=== PATIENT | female | born 1995 | race Caucasian/White ===

== ENCOUNTER 2018-02-12 12:35 | Emergency (ER) | payer OTHER, MEDICAID, SELFPAY ==
--- NOTE | 2018-02-12 12:38 | ED_ITS ---
HPI - Extremity Injury (Lower) <MIRANDA Acosta - Last Filed: 02/12/18 22:06> General Chief Complaint: Extremity Injury, Lower Stated Complaint: thinks tore something in knee Time Seen by Provider: 02/12/18 12:38 History of Present Illness HPI Narrative: Healthy 22-year-old female currently approximately 9 weeks here for pain into her right knee. She states that she was jumping up and down yesterday when she felt pain to her right knee she reports increased pain with bending of the right knee and ambulating. She states she is able to ambulate and did ambulate into the emergency room. She denies any other injuries. No abdominal injury. No vaginal discharge or bleeding. No other concerns or complaints. She denies any direct trauma to the knee. MD complaint: knee injury Onset (ago): day(s) Related Data Home Medications Medication Instructions Recorded Confirmed etonogestrel-ethinyl estradiol 02/12/18 [NuvaRing] Allergies Allergy/AdvReac Type Severity Reaction Status Date / Time No Known Drug Allergies Allergy Verified 02/12/18 12:41 Review of Systems <MIRANDA Acosta - Last Filed: 02/12/18 22:06> Constitutional Denies chills, Denies fever(s), Denies lethargy and Denies weakness Eyes Denies change in vision, Denies eye discharge, Denies irritation and Denies loss of vision ENT Ears, Nose, Mouth, and Throat: Denies change in voice, Denies neck pain and Denies sore throat Cardiovascular Denies chest pain, Denies irregular heart rhythm, Denies lightheadedness, Denies palpitations, Denies dyspnea, Denies dyspnea on exertion and Denies orthopnea Respiratory Denies cough, Denies dyspnea, Denies dyspnea on exertion and Denies wheezing Gastrointestinal Gastrointestinal: Denies abdominal pain, Denies change in bowel habits, Denies diarrhea, Denies nausea and Denies vomiting Genitourinary Denies hematuria, Denies flank pain, Denies urinary incontinence and Denies urinary urgency Musculoskeletal Denies neck pain Comments: Right knee pain Integumentary/Breasts Denies pruritus, Denies erythema, Denies rash and Denies wounds Neurologic Denies confusion, Denies loss of vision and Denies weakness Psychiatric Denies anxiety, Denies confusion, Denies depression, Denies homicidal ideation and Denies suicidal ideation Endocrine Denies palpitations Allergic/Immunologic Denies wheezing Exam <MIRANDA Acosta - Last Filed: 02/12/18 22:06> Initial Vital Signs Initial Vital Signs: Vital Signs Temperature 97.4 F L 02/12/18 12:41 Pulse Rate 97 H 02/12/18 12:41 Respiratory Rate 16 02/12/18 12:41 Blood Pressure 106/54 L 02/12/18 12:41 Pulse Oximetry 97 02/12/18 12:41 Const General: cooperative and well developed Nutritional Appearance: well nourished Orientation: alert, awake, oriented x3 and not confused HENMN Mouth: oral mucosae normal and moist mucous membranes Eyes Conjunctivae: conjunctivae normal Sclera: sclerae normal Pupils: PERRL EOM: EOM intact bilaterally Chest Chest: normal inspection of the chest Resp Effort & Inspection: normal respiratory effort, able to speak in complete sentences, no respiratory distress and no use of accessory muscles Auscultation: clear to auscultation bilaterally, no rales, no rhonchi and no wheezes Cardio Rate: regular rate Rhythm: regular rhythm Heart Sounds: no click, no gallops, no murmurs and no rubs Pulses: normal peripheral pulses Skin General: no rashes or lesions noted, No jaundice and No petechiae Extrem Other: Slight swelling to the right knee. No ecchymosis. No erythema. No deformities. Distal sensation is intact. Distal pulses are intact. Distal range of motion is intact. Range of motion of the right knee is intact although decreased ability to flexion past 60? due to discomfort. Negative anterior and posterior drawer sign. Negative varus and valgus stress test <Vangie Westbrook DO - Last Filed: 02/13/18 07:14> Initial Vital Signs Initial Vital Signs: Vital Signs Temperature 97.4 F L 02/12/18 12:41 Pulse Rate 97 H 02/12/18 12:41 Respiratory Rate 16 02/12/18 12:41 Blood Pressure 106/54 L 02/12/18 12:41 Pulse Oximetry 97 02/12/18 12:41 Course <MIRANDA Acosta - Last Filed: 02/12/18 22:06> Orders Ordered: Discontinued Medications Acetaminophen (Tylenol) 650 mg PO NOW ONE Stop: 02/12/18 12:50 Last Admin: 02/12/18 12:53 Dose: 650 mg Vital Signs - 8 hr 02/12/18 12:41 Temperature 97.4 F L Pulse Rate 97 H Respiratory Rate 16 Blood Pressure 106/54 L Pulse Oximetry 97 <Vangie Westbrook DO - Last Filed: 02/13/18 07:14> Orders Ordered: Discontinued Medications Acetaminophen (Tylenol) 650 mg PO NOW ONE Stop: 02/12/18 12:50 Last Admin: 02/12/18 12:53 Dose: 650 mg Vital Signs - 8 hr 02/12/18 12:41 Temperature 97.4 F L Pulse Rate 97 H Respiratory Rate 16 Blood Pressure 106/54 L Pulse Oximetry 97 MDM - Extremity Injury (Lower) <MIRANDA Acosta - Last Filed: 02/12/18 22:06> Imaging Data R knee: Radiologist's impression: Patient: Joycelyn Poe MR#: [id number] : 1995 Acct:[id number] Age/Sex: 22 / F Date of Service: 02/12/18 Loc: ED Accession Number: [id number] Procedure: XR knee RT 3V Ordering Provider: Mazin Lowry PROCEDURE: XR KNEE RT 3V INDICATIONS: Pain to right knee after jumping yesterday TECHNIQUE: 3 views of the knee were acquired. COMPARISON: None. FINDINGS: Bones: No fractures or dislocations. No suspicious bony lesions. Soft tissues: No joint effusion. No suspicious soft tissue calcifications. IMPRESSION: No trauma found. Dictated by: Mahamed Schwartz M.D. on 02/12/2018 at 13:21 Approved by: Mahamed Schwartz M.D. on 02/12/2018 at 13:24 [facility] Narrative Medical decision making narrative: X-ray of the right knee was obtained was negative for any acute findings. Signs and symptoms presents as sprain of the right knee. She is placed in a knee immobilizer for comfort and support along with crutches for nonweightbearing. If continued pain recommend MRI for further evaluation follow up with primary care provider later this week for re- evaluation. Ice and elevation help with any swelling. [id number] Tylenol as needed for any discomfort. For any worsening symptoms return to the emergency room. Discharge Plan Departure Patient Disposition: Home, Self-Care Clinical Impression: Right knee sprain Discharge Date/Time: 02/12/18 14:02 Interventions: ED Discharge Assessment Last Done: 02/12/18 14:01 Instructions: DI for Knee Pain Activity Restrictions/Additional Instructions: X-ray of the right knee was obtained was negative for any acute findings. Signs and symptoms presents as sprain of the right knee. You have been is placed in a knee immobilizer for comfort and support along with crutches for nonweightbearing use as directed. If continued pain recommend MRI for further evaluation follow up with primary care provider later this week for re- evaluation. Ice and elevation help with any swelling. [id number] Tylenol as needed for any discomfort. For any worsening symptoms return to the emergency room. Prescriptions: No Action etonogestrel-ethinyl estradiol [NuvaRing] 0.12-0.015 mg/24 hr ring RF: 0 Referrals: Katerina Vaughan [Primary Care Provider] - <Vangie Westbrook DO - Last Filed: 02/13/18 07:14> Cosign ED Attending Mary Attestation: I was immediately available in the department for consultation. Documentation has been reviewed. I agree with assessment and plan.
[2018-02-12 12:41] VITALS: BP 106/54; PULSE 97; RESP 16; TEMP 36.3; O2SAT 97; BMI 32.3
--- NOTE | 2018-02-12 12:49 | DI.RAD.S_ITS ---
PROCEDURE: XR KNEE RT 3V INDICATIONS: Pain to right knee after jumping yesterday TECHNIQUE: 3 views of the knee were acquired. COMPARISON: None. FINDINGS: Bones: No fractures or dislocations. No suspicious bony lesions. Soft tissues: No joint effusion. No suspicious soft tissue calcifications. IMPRESSION: No trauma found. Dictated by: Mahamed Schwartz M.D. on 02/12/2018 at 13:21 Approved by: Mahamed Schwartz M.D. on 02/12/2018 at 13:24
[2018-02-12] MEDS: ACETAMINOPHEN 325 MG TABLET 650 MG PO (12:53)
[2018-02-12 13:56] VITALS: BP 114/67; PULSE 87; RESP 16; TEMP 36.7; O2SAT 99
== END 2018-02-12 14:02 | disposition home or self-care (01) ==
PROVIDERS: Emergency Provider Nurse Practitioner Family; PCP Nurse Practitioner
DX: S83.91XA Sprain of unspecified site of right knee, initial encounter (principal); W19.XXXA Unspecified fall, initial encounter
CPT/HCPCS: 73562; 99283

== ENCOUNTER 2018-03-17 13:02 | Emergency (ER) | payer OTHER, MEDICAID, SELFPAY ==
[2018-03-17 13:08] VITALS: BP 138/112; PULSE 118; RESP 18; TEMP 36.9; O2SAT 97; BMI 32.3
[2018-03-17] MEDS: TET,DIPH,PERTUSS(ACELL),VAC/PF 0.5 ML SYRINGE IM (13:10)
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
[2018-03-17 15:14] VITALS: BP 112/64; PULSE 102; RESP 14; O2SAT 100
== END 2018-03-17 15:35 | disposition home or self-care (01) ==
PROVIDERS: Emergency Provider Internal Medicine; PCP Nurse Practitioner
DX: S21.212A Laceration without foreign body of left back wall of thorax without penetration into thoracic cavity, initial encounter (principal); X99.8XXA Assault by other sharp object, initial encounter; Z3A.14 14 weeks gestation of pregnancy; O26.899 Other specified pregnancy related conditions, unspecified trimester
CPT/HCPCS: 12005; 12035; 90471; 99283; 90715

== ENCOUNTER 2018-04-01 15:24 | Inpatient (IN) | payer OTHER, MEDICAID, SELFPAY ==
[2018-04-01] VITALS (7 sets, daily range): BP systolic 101–117; BP diastolic 53–64; PULSE 98–133; RESP 14–16; TEMP 36.7–38.6; O2SAT 98–100; BMI 31.8
[2018-04-01] MEDS: ACETAMINOPHEN 325 MG TABLET 650 MG PO ×2 (16:29→22:08)
[2018-04-01 16:32] LABS: Bacteria Urine Many (>30); Culture Indicated Urine Specimen Cultured; RBC Urine 1-5/HPF (0-5/HPF); WBC Urine 30-100/HPF (0-5/HPF)
--- NOTE | 2018-04-01 16:42 | ED.ABDPAIN ---
HPI - Abdominal Pain General Chief Complaint: Abdominal Pain Stated Complaint: ABD PAIN Time Seen by Provider: 04/01/18 16:06 Source: patient Mode of arrival: ambulatory Limitations: no limitations History of Present Illness HPI narrative: Patient is a 22-year-old at 16 weeks EGA otherwise healthy here for evaluation of generalized abdominal pain, left flank pain, fevers and nausea and vomiting. Patient denies any abdominal cramping or vaginal bleeding or loss of fluid. Does not have any dysuria. No change in bowel symptoms. She states that she generally does not feel very well. States that earlier in this she was diagnosed with a urinary tract infection and did not take any antibiotics but otherwise has had an uncomplicated up to this point. Related Data Home Medications Medication Instructions Recorded Confirmed PNV cmb#95-ferrous fumarate-FA 1 tab PO DAILY 03/17/18 04/01/18 [] sertraline [Zoloft] 50 mg PO BEDTIME 04/01/18 04/01/18 Allergies Allergy/AdvReac Type Severity Reaction Status Date / Time No Known Drug Allergies Allergy Verified 04/01/18 16:02 Review of Systems Constitutional Reports fatigue, Reports fever(s), Denies headache(s) and Reports malaise ENT Ears, Nose, Mouth, and Throat: Denies headache(s) Cardiovascular Denies chest pain, Denies diaphoresis and Denies dyspnea Respiratory Denies cough and Denies dyspnea Gastrointestinal Gastrointestinal: Denies abdominal pain, Denies change in stool character, Denies constipation, Denies cramping, Reports nausea and Reports vomiting Genitourinary Denies dysuria, Denies pelvic pain, Reports flank pain (Left), Denies urinary incontinence and Denies urinary hesitancy Comments: No uterine cramping, no vaginal bleeding, no loss of fluid Musculoskeletal Denies myalgias and Denies arthralgias Integumentary/Breasts Denies lesions and Denies rash Neurologic Denies headache(s) Endocrine Reports fatigue Hematologic/Lymphatic Denies easy bleeding and Denies easy bruising [facility] Medical History Healthy female (Chronic) Surgical History H/O lateral meniscus repair of left knee (Resolved) Social History Smoking Status: Former smoker alcohol intake: never substance use type: does not use Exam Initial Vital Signs Initial Vital Signs: Vital Signs Temperature 101.4 F H 04/01/18 15:54 Pulse Rate 133 H 04/01/18 15:54 Respiratory Rate 16 04/01/18 15:54 Blood Pressure 101/53 L 04/01/18 15:54 Pulse Oximetry 99 04/01/18 15:54 Const General: cooperative, comfortable, well developed, well groomed and No acute distress Orientation: alert, awake and oriented x3 HENMT Head: normal to inspection and normocephalic Resp Effort & Inspection: normal respiratory effort Auscultation: clear to auscultation bilaterally Cardio Rate: tachycardic Rhythm: regular rhythm Heart Sounds: no murmurs Pulses: radial pulses not present GI Inspection: non-distended Palpation: soft and No firm Back/Spine/Pelvis Back: CVA tenderness left Skin Lesions: no lesions Rashes: no rashes Neuro General: alert, awake and oriented x3 Cognition: normal cognition Speech: speech normal Motor: muscle tone normal throughout Extrem General: normal to inspection, capillary refill normal and No edema Psych Appearance: grossly normal and well kempt Course Orders Ordered: ED Orders 04/01/18 16:00 Urine Culture Stat Urine Microscopic Stat 04/01/18 16:40 Basic Metabolic Panel Stat Complete Blood Count AUTO DIFF Stat Lactate (Lactic Acid) Stat 04/01/18 16:43 US OB limited Stat 04/01/18 16:59 Education, smoking cessation ONGOING 04/01/18 18:06 Blood Culture Stat Vit/Calcium/Iron/Folic Ac (Prenatabs Rx) 1 tab PO DAILY CHANTAL Discontinued Medications Acetaminophen (Tylenol) 650 mg PO NOW ONE Stop: 04/01/18 16:07 Last Admin: 04/01/18 16:29 Dose: 650 mg Sodium Chloride (Normal Saline 0.9%) 1,000 mls @ 1,000 mls/hr IV BOLUS ONE Stop: 04/01/18 17:05 Last Infusion: 04/01/18 18:28 Dose: 0 mls/hr Infusion: 04/01/18 17:45 Dose: 1,000 mls/hr Admin: 04/01/18 16:50 Dose: 1,000 mls/hr Ceftriaxone Sodium/Dextrose (Rocephin) 1 gm in 50 mls @ 100 mls/hr IV NOW ONE Stop: 04/01/18 17:14 Last Infusion: 04/01/18 17:47 Dose: 0 mls/hr Admin: 04/01/18 16:59 Dose: 100 mls/hr Vital Signs - 8 hr 04/01/18 15:54 04/01/18 16:29 04/01/18 17:27 Temperature 101.4 F H 101.2 F H Pulse Rate 133 H 98 H Respiratory Rate 16 14 Blood Pressure 101/53 L Blood Pressure [Left Arm] 111/62 Pulse Oximetry 99 100 04/01/18 17:44 Temperature 100.1 F H Pulse Rate Respiratory Rate Blood Pressure Blood Pressure [Left Arm] Pulse Oximetry MDM - Abdominal Pain Lab Data Attestation: I reviewed the patient's lab results. Result diagrams: 04/01/18 16:40 04/01/18 16:40 Lab Results 04/01/18 04/01/18 04/01/18 Range/Units 16:00 16:40 16:40 WBC 14.3 H (4.5-11.0) X10^3/uL RBC 4.01 (4.0-5.2) X10^6/uL Hgb 12.5 (12.0-16.0) g/dL Hct 36.3 (36-46) % MCV 90.6 (80-100) fL MCH 31.3 (26-34) PG MCHC 34.5 (30-36) % RDW 12.4 (11.6-14.8) % Plt Count 161 (150-400) X10^3/uL Neut % (Auto) 84.6 H (50-75) % Lymph % (Auto) 8.1 L (25-40) % [place] % (Auto) 7.1 (3-14) % Eos % (Auto) 0.1 L (2-4) % Baso % (Auto) 0.1 (0-2) % Neut # (Auto) 74788 H (0074-0608) /uL Sodium 134 L (137-145) mmol/L Potassium 3.8 (3.4-5.1) mmol/L Chloride 97 L (98-107) mmol/L Carbon Dioxide 25 (22-32) mmol/L BUN 5 L (7-17) mg/dL Creatinine 0.60 (0.52-1.04) mg/dL Estimated GFR > 60.0 (>60) mL/min BUN/Creatinine Ratio 8.3 (6-22) Glucose 104 H (70-100) mg/dL Lactate (0.7-2.1) mmol/L Calcium 9.4 (8.4-10.2) mg/dL Urine RBC 1-5/hpf (0-5/HPF) Urine WBC 30-100/hpf H (0-5/HPF) Urine Bacteria Many (>30) H (None) Ur Culture Indicated? Specimen cultured Micro UA Comment Not Reportable 04/01/18 Range/Units 16:40 WBC (4.5-11.0) X10^3/uL RBC (4.0-5.2) X10^6/uL Hgb (12.0-16.0) g/dL Hct (36-46) % MCV (80-100) fL MCH (26-34) PG MCHC (30-36) % RDW (11.6-14.8) % Plt Count (150-400) X10^3/uL Neut % (Auto) (50-75) % Lymph % (Auto) (25-40) % [place] % (Auto) (3-14) % Eos % (Auto) (2-4) % Baso % (Auto) (0-2) % Neut # (Auto) (6382-5254) /uL Sodium (137-145) mmol/L Potassium (3.4-5.1) mmol/L Chloride (98-107) mmol/L Carbon Dioxide (22-32) mmol/L BUN (7-17) mg/dL Creatinine (0.52-1.04) mg/dL Estimated GFR (>60) mL/min BUN/Creatinine Ratio (6-22) Glucose (70-100) mg/dL Lactate 0.9 (0.7-2.1) mmol/L Calcium (8.4-10.2) mg/dL Urine RBC (0-5/HPF) Urine WBC (0-5/HPF) Urine Bacteria (None) Ur Culture Indicated? Micro UA Comment Point of care testing: Urine Dip Bedside Urine Glucose Negative Bedside Urine Bilirubin - Negative Bedside Urine Ketone +/- 5 Urine Specific [place] 1.015 Bedside Urine Occult Blood - Negative Bedside Urine pH 6.0 Bedside Urine Protein +/- 15 Bedside Urine Urobilinogen - Negative Bedside Urine Nitrite + Positive Bedside Urine Leukocytes + 70 Esterase Imaging Data US - abdomen: Radiologist's impression: [address] [address] Ultrasound Report Signed Patient: Joycelyn Poe LMR#: [id number] : 1995Acct:[id number] Age/Sex: te of Service: 04/01/18 Loc: AE127-6 Accession Number: [id number] Procedure: US OB limited Ordering Provider: Jomar Benoit D.O. PROCEDURE: US OB LIMITED INDICATIONS: abd pain with pyelo OUTSIDE/PRIOR DATING DATA: Last menstrual period (LMP): 12/09/17. LMP-based estimated date of delivery (IVELISSE): 09/15/18. First dating scan (date and location): Not available. Estimated date of delivery (IVELISSE) from first dating scan: Not available. TECHNIQUE: Real-time scanning was performed of the fetus, with image documentation and biometric measurements. Endovaginal scanning: None COMPARISON: None. FINDINGS: General: A single living intrauterine gestation is present. Presentation: Vertex Placenta: Placental position is anterior, without previa. Amniotic fluid index: 12.7 cm, normal range is 5-24 cm. heart rate: 153 beats per minute. Maternal cervical canal: 3.2 cm long. Normal lower limit is 2.5 cm. biometrics: Biparietal diameter: 3.4 cm, and 16 weeks 4 days Head circumference: 12.7 cm, 16 weeks 3 days Abdominal circumference: 9.8 cm, 15 weeks 6 days Femur length: 1.9 cm, 15 weeks 5 days Estimated gestational age from initial scan: not applicable. Composite gestational age from present scan: 16 week one day Estimated weight and percentile: 137 g, 24% Measurement variability for biometric dating: +/- 7 days from 14 weeks to 15 weeks 6 days gestation, +/- 10 days from 16 weeks to 21 weeks 6 days gestation, +/- 2 weeks from 22 weeks to 27 weeks 6 days gestation, +/- 3 weeks for 28 weeks gestation or later. weight reference: 4500 g or EFW >90/95% is considered macrosomia or large for gestational age. EFW <10% is small for gestational age. EFW 5% or less is considered intra-uterine growth restriction. Other: Not applicable. IMPRESSION: Single live intrauterine with fetus in vertex presentation. heart rate is 153 beats per minute. Estimated gestational age based on current study is 16 week one day. No gross obstetric abnormalities are seen. Dictated by: Vidal Campoverde M.D. on 04/01/2018 at 17:47 Approved by: Vidal Campoverde M.D. on 04/01/2018 at 17:50 [facility] Narrative Medical decision making narrative: Otherwise healthy 22-year-old female febrile, elevated white blood cell count, tachycardic and urinalysis concerning for a UTI. Patient was also vomiting and just does not feel well for the past couple days. I feel that her symptoms are consistent with pyelo. She was given Rocephin here in the ER. Was also given fluids and Tylenol here in the ER. I feel that even though the patient has not had a trial of oral antibiotics at home her clinical presentation the fact she has been vomiting for the past couple days would make this excess of oral antibiotics unlikely to be successful. Discussed the case with Dr. Nunez with Internal Medicine who accepts the patient for admission. I also discussed with Dr. Hicks with OB who states she will come and consult on the patient tomorrow. I discussed the admission with the patient. She expressed understanding and agreement with plan. Discharge Plan Departure Patient Disposition: Admitted as Observation Clinical Impression: Pyelonephritis, Discharge Date/Time: 04/01/18 17:28 Interventions: ED Discharge Assessment Last Done: 04/01/18 17:28 Admit Date/Time: 04/01/18 16:53 Admit Provider: Bert Jamil
[2018-04-01] MEDS: SODIUM CHLORIDE 0.9% 1,000 ML 1000 ML IV (16:50)
[2018-04-01 16:56] LABS: Add Manual Diff / Slide Review NO; Basophils Percent Auto 0.1 % (0-2); Eosinophils Percent Auto 0.1 % (2-4); Hematocrit 36.3 % (36-46); Hemoglobin 12.5 g/dL (12.0-16.0); Lymphocytes Percent Auto 8.1 % (25-40); Mean Corpuscular HGB Conc 34.5 % (30-36); Mean Corpuscular Hemoglobin 31.3 PG (26-34); Mean Corpuscular Volume 90.6 fL (80-100); Monocytes Percent Auto 7.1 % (3-14); Neutrophils Absolute Auto 12100 /uL (3000-5900); Neutrophils Percent Auto 84.6 % (50-75); Platelet Count 161 X10^3/uL (150-400); Red Blood Cell Count 4.01 X10^6/uL (4.0-5.2); Red Cell Distribution Width 12.4 % (11.6-14.8); White Blood Cell Count 14.3 X10^3/uL (4.5-11.0)
[2018-04-01] MEDS: CEFTRIAXONE 1 GM/50 ML FROZ.PIGGY IV (16:59)
[2018-04-01 17:05] LABS: Lactate (Lactic Acid) 0.9 mmol/L (0.7-2.1)
[2018-04-01 17:06] LABS: BUN Creatinine Ratio 8.3 (6-22); Blood Urea Nitrogen 5 mg/dL (7-17); Calcium 9.4 mg/dL (8.4-10.2); Carbon Dioxide 25 mmol/L (22-32); Chloride 97 mmol/L (98-107); Estimated Glomerular Filt Rate > 60.0 mL/min (>60); Glucose 104 mg/dL (70-100); HEMOLYSIS < 15 (0-50); Potassium 3.8 mmol/L (3.4-5.1); Sodium 134 mmol/L (137-145)
--- NOTE | 2018-04-01 17:56 | PM.HP.1 ---
History of Present Illness Date Patient Seen: 04/01/18 Time Patient Seen: 17:58 Chief complaint: ABD PAIN Narrative: THIS VERY PLEASANT 22-YEAR-OLD FEMALE WHO IS 16 WEEKS NAUSEA VOMITING FOR THE LAST 2 DAYS ABDOMINAL DISCOMFORT WENT [facility] 2 DAYS AGO AND HAD TO WAIT FOR 3 HR BUT NOBODY SAW SO SHE CAME BACK AND SHE PRESENT TO THE ER TODAY SINCE SHE WAS CONTINUOUSLY VOMITING LAST NIGHT SHE HAS A FEVER IN THE ER INITIALLY SHE THOUGHT THE ABDOMINAL DISCOMFORT IS UNCERTAIN BOTHER BUT THEN SHE STARTED GETTING NAUSEA AND VOMITING AND THE SHE PRESENTED TO THE ER DURING THE BEGINNING OF THE SHE HAD A POSITIVE URINARY TRACT INFECTION BUT DID NOT TAKE ANY ANTIBIOTICS PRESCRIBED AT THE TIME THIS IS A 2ND THE 1ST THE CHILD IS ON SMEAR IN 3 MONTHS OR SHE HAD NO ISSUES DURING THAT TIME NO URINARY INFECTION OR DIABETES Patient History Medical History Healthy female (Chronic) Surgical History H/O lateral meniscus repair of left knee (Resolved) Family & Social History Family History: Reviewed 04/01/18 by Bert Jamil MD Tobacco & Substance use: Smoking Status Former smoker alcohol intake never alcohol intake frequency 0-2 drinks per day Substance Use Type does not use Comment: THIS IS A HISTORY OF DIABETES IN THE GRANDPARENTS NO HISTORY OF EARLY CORONARY DISEASE Meds Home Medications Medication Instructions Recorded Confirmed Type PNV cmb#95-ferrous fumarate-FA 1 tab PO DAILY 03/17/18 04/01/18 History [] Allergies Allergy/AdvReac Type Severity Reaction Status Date / Time No Known Drug Allergies Allergy Verified 04/01/18 16:02 Review of Systems Review of Systems TWELVE POINT REVIEW OF SYSTEM WAS DONE SHE DOES NOT COMPLAIN OF ANY CHEST PAIN OR DIFFICULTY BREATHING COUGH PALPITATIONS FEVER CHILLS OR RIGORS OTHER SYSTEMS ARE NEGATIVE Exam Vital Signs (past 8 hours): - 04/01/18 15:54 04/01/18 16:29 04/01/18 17:27 Temperature 101.4 F H 101.2 F H Pulse Rate 133 H 98 H Respiratory Rate 16 14 Blood Pressure 101/53 L Blood Pressure [Left Arm] 111/62 Pulse Oximetry 99 100 04/01/18 17:44 Temperature 100.1 F H Pulse Rate Respiratory Rate Blood Pressure Blood Pressure [Left Arm] Pulse Oximetry Oxygen Delivery Method Room Air Const General: cooperative, healthy appearing, comfortable and well developed Orientation: alert, awake and oriented x3 HENMT Head: normal to inspection Ears: hearing grossly normal bilaterally Nose: external nose normal Face and sinus: normal facial exam Mouth: oral mucosae normal Eyes General: appearance normal, both eyes and all related structures Eyelids: eyelids normal Conjunctivae: conjunctivae normal Sclera: sclerae normal Pupils: PERRL EOM: EOM intact bilaterally Neck Neck: normal visual inspection Thyroid: thyroid normal Resp Effort & Inspection: normal respiratory effort, able to speak in complete sentences, no respiratory distress and no use of accessory muscles Auscultation: clear to auscultation bilaterally Cardio Rate: regular rate Rhythm: regular rhythm Heart Sounds: S1 normal and S2 normal GI Palpation: soft and tender (MILD LT CV ANGLE ) Skin General: no rashes or lesions noted Neuro General: alert, awake, oriented x3 and no meningeal signs Cranial Nerves: CN's II-XI intact bilaterally Cognition: normal cognition Speech: speech normal Motor: muscle tone normal throughout Sensory Exam: no sensory deficits noted Extrem Other: NIL CALF TENDERNESS NIL EDEMA Psych Appearance: grossly normal Speech and Movement: speech and movement normal Mood: congruent mood Affect: normal affect Attitude: cooperative Thought Process: normal Thought Content: normal Judgment: judgment good Objective Labs Result Diagrams: 04/01/18 16:40 04/01/18 16:40 Labs: Laboratory Results - last 24 hr 04/01/18 04/01/18 04/01/18 16:00 16:40 16:40 WBC 14.3 H RBC 4.01 Hgb 12.5 Hct 36.3 MCV 90.6 MCH 31.3 MCHC 34.5 RDW 12.4 Plt Count 161 Neut % (Auto) 84.6 H Lymph % (Auto) 8.1 L [place] % (Auto) 7.1 Eos % (Auto) 0.1 L Baso % (Auto) 0.1 Neut # (Auto) 23115 H Sodium 134 L Potassium 3.8 Chloride 97 L Carbon Dioxide 25 BUN 5 L Creatinine 0.60 Estimated GFR > 60.0 BUN/Creatinine Ratio 8.3 Glucose 104 H Lactate Calcium 9.4 Urine RBC 1-5/hpf Urine WBC 30-100/hpf H Urine Bacteria Many (>30) H Ur Culture Indicated? Specimen cultured Micro UA Comment Not Reportable 04/01/18 16:40 WBC RBC Hgb Hct MCV MCH MCHC RDW Plt Count Neut % (Auto) Lymph % (Auto) [place] % (Auto) Eos % (Auto) Baso % (Auto) Neut # (Auto) Sodium Potassium Chloride Carbon Dioxide BUN Creatinine Estimated GFR BUN/Creatinine Ratio Glucose Lactate 0.9 Calcium Urine RBC Urine WBC Urine Bacteria Ur Culture Indicated? Micro UA Comment Assessment & Plan Plan: Assessment/Plan Narrative: 1. URINARY TRACT INFECTION AND POSSIBLE ACUTE PYELONEPHRITIS START CEFTRIAXONE IV WILL GET ULTRASOUND OF THE KIDNEYS TO MAKE SURE THERE IS NO DRAINABLE COLLECTION 2. AT [address] JACKSON HAS BEEN INFORMED OF HER ADMISSION FROM THE ER WILL SEE HER IN THE MORNING TOMORROW 3. SMOKER UNTIL BEING A DVT PROPHYLAXIS WITH SCD Time Spent With Patient Time with patient: Greater than 35 minutes
--- NOTE | 2018-04-01 18:57 | PC.NURSE ---
patient is a&ox4, 98% on ra, denies nausea, sob, or dizziness. patient states pain is 6/10 in her flank bilaterally, lower right quadrant and upper left quadrant of abd. cms is intact, pulses palpable to dorsalis pedis bilaterally, patient demonstrates adequate mobility while ambulating to br. patient voided successfully in br. lung sounds clear, heart sounds regular, bowel tones active, patient states she is not passing gas at this time. skin is intact except for 1-week old scar to left scapula, patient was cut by friend with razor; recieved stitches and scar is healing nicely. patient oriented to room, will continue to monitor. call light in reach.
[2018-04-01] MEDS: DEXTROSE 5%-NS W/KCL 20MEQ 1,000 ML 84 MEQ IV (20:01)
[2018-04-02] VITALS (12 sets, daily range): BP systolic 92–104; BP diastolic 47–62; PULSE 78–86; RESP 14–20; TEMP 36.4–36.8; O2SAT 96–100
[2018-04-02] MEDS: ACETAMINOPHEN 325 MG TABLET 650 MG PO ×5 (03:24→22:58)
--- NOTE | 2018-04-02 04:28 | PC.NURSE ---
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 Pleasant and cooperative, Pt's boyfriend Gonzalez stayed overnight, contract writer explained visitor policy for night to pt's sister who was also in room, who was agreeable to going home and come back in the AM. IVF infusing well to Right AC PIV. Pt OOB with SBA to BR with steady gait, denies light-headedness or dizziness with ambulation. At 0110, c/o RLQ & LUQ abd pain, non tender abd, no prn's at this time. At 0325, c/o RLQ & LUQ abd pain, lower back pain and anterior headache. prn Tylenol given at 0325 and gallito castellano. No nausea noted. Tylenol had good effect as upon reassessment, pt found to be sleeping. Voiding qs in BR, aware of need for I/O measurements. Pt aware of Renal U/S at 0900 per dept phone call, no restrictions noted. Pt did states eagerness for discharge as her sister's wedding is Wednesday at noon.
[2018-04-02] MEDS: DEXTROSE 5%-NS W/KCL 20MEQ 1,000 ML 84 MEQ IV ×2 (06:49→19:25)
--- NOTE | 2018-04-02 08:00 | DI.US.S_ITS ---
PROCEDURE: US RENAL COMPLETE INDICATIONS: pyelonephritis, abd pain TECHNIQUE: Real-time scanning was performed of the kidneys and bladder, with image documentation. COMPARISON: None. FINDINGS: Kidneys: Kidneys are normal in size. Right kidney measures 13.7 cm long; left kidney measures 13.9 cm long. Right renal cortical thickness is 1.6 cm; left renal cortical thickness is 1.8 cm. Renal cortical echotexture is normal. No hydronephrosis or nephrolithiasis. No suspicious solid mass lesions. Normal anatomic variant duplex right renal collecting system. Bladder: Pre-void bladder volume is essentially 0 mL. Post-void residual is 12 mL. The patient had voided just prior to the examination. Miscellaneous: No free pelvic fluid. IMPRESSION: No hydronephrosis or nephrolithiasis. No perinephric abscess is suspected. Reported pyelonephritis with left-sided flank pain. Bladder assessment is incomplete due to to the patient having voided just prior to the examination. Note: These findings are concordant with the preliminary interpretation. Dictated by: Mahamed Schwartz M.D. on 04/02/2018 at 10:04 Approved by: Mahamed Schwartz M.D. on 04/02/2018 at 10:06
[2018-04-02] MEDS: PRENATAL VIT,CALC/IRON/FOLIC 1 TABLET 1 TAB PO (08:25)
--- NOTE | 2018-04-02 11:53 | P.CONS_ITS ---
History of Present Illness Date Patient Seen: 04/02/18 Time Patient Seen: 11:53 Chief complaint: ABD PAIN Reason for consult: Obstetrical patient with pyelonephritis Requesting provider: Bert Jamil Narrative: Patient is a 22-year-old 2 para 1 at 14 weeks gestation who was admitted last evening through the emergency department for a left-sided pyelonephritis Patient receives her primary OB care in [place]. She has not had any complications so far. She has had 1 spontaneous vaginal delivery 15 months ago at 38 weeks. No complications with or delivery. [facility] Medical History History of recurrent UTIs (Acute) Healthy female (Chronic) Surgical History H/O lateral meniscus repair of left knee (Resolved) Social History household members: significant other, family and children Smoking Status: Former smoker alcohol intake: never substance use type: does not use Meds Home Medications Medication Instructions Recorded Confirmed Type PNV cmb#95-ferrous fumarate-FA 1 tab PO DAILY 03/17/18 04/01/18 History [] sertraline [Zoloft] 50 mg PO BEDTIME 04/01/18 04/01/18 History Allergies Allergy/AdvReac Type Severity Reaction Status Date / Time No Known Drug Allergies Allergy Verified 04/01/18 16:02 Review of Systems Constitutional Constitutional: Denies anorexia, Denies body ache(s), Reports chills, Denies excessive sweating, Reports fatigue, Reports fever(s), Denies headache(s), Denies lack of energy, Reports night sweats and Denies poor appetite ENT Ears, Nose, Mouth, and Throat: No headache(s) Gastrointestinal Gastrointestinal: Reports abdominal pain, Denies change in bowel habits, Denies constipation and Reports cramping Genitourinary Genitourinary: Reports urinary frequency, Denies difficulty voiding, Denies post void dribbling, Denies urinary incontinence, Denies urinary hesitancy, Reports urinary urgency and Denies genital pruritis Neurologic Neurologic: Denies headache(s) Endocrine Endocrine: Denies excessive sweating and Reports fatigue Exam Vital Signs (past 8 hours): - 04/02/18 07:00 04/02/18 07:45 Temperature 97.6 F Pulse Rate 84 Respiratory Rate 16 Blood Pressure 94/55 L Pulse Oximetry 96 100 Oxygen Delivery Method Room Air Oxygen Flow Rate 0 Const General: cooperative, healthy appearing, comfortable and well developed Nutritional Appearance: average body habitus Orientation: alert and awake [facility] Mouth: oral mucosae normal Teeth and gingiva: dentition normal Other: No anterior cervical or supraclavicular lymphadenopathy Neck Thyroid: thyroid normal Lymphatic: No lymphadenopathy Chest Chest: normal inspection of the chest and normal palpation of entire chest wall Resp Effort & Inspection: normal respiratory effort and able to speak in complete sentences Cardio Rate: regular rate Rhythm: regular rhythm Heart Sounds: S1 normal and S2 normal GI Inspection: other (Fundal height 15 cm) Palpation: soft, no hepatosplenomegaly, No guarding and No tender Auscultation: normal bowel sounds General: CVA tenderness (On the left) External Female Exam: external appearance normal Uterus Location (Fundal Height): 15 Back/Spine/Pelvis Back: back tenderness (Left side) Objective Labs Result Diagrams: 04/01/18 16:40 04/01/18 16:40 Labs: Laboratory Results - last 24 hr 04/01/18 04/01/18 04/01/18 16:00 16:40 16:40 WBC 14.3 H RBC 4.01 Hgb 12.5 Hct 36.3 MCV 90.6 MCH 31.3 MCHC 34.5 RDW 12.4 Plt Count 161 Neut % (Auto) 84.6 H Lymph % (Auto) 8.1 L [place] % (Auto) 7.1 Eos % (Auto) 0.1 L Baso % (Auto) 0.1 Neut # (Auto) 83845 H Sodium 134 L Potassium 3.8 Chloride 97 L Carbon Dioxide 25 BUN 5 L Creatinine 0.60 Estimated GFR > 60.0 BUN/Creatinine Ratio 8.3 Glucose 104 H Lactate Calcium 9.4 Urine RBC 1-5/hpf Urine WBC 30-100/hpf H Urine Bacteria Many (>30) H Ur Culture Indicated? Specimen cultured Micro UA Comment Not Reportable 04/01/18 16:40 WBC RBC Hgb Hct MCV MCH MCHC RDW Plt Count Neut % (Auto) Lymph % (Auto) [place] % (Auto) Eos % (Auto) Baso % (Auto) Neut # (Auto) Sodium Potassium Chloride Carbon Dioxide BUN Creatinine Estimated GFR BUN/Creatinine Ratio Glucose Lactate 0.9 Calcium Urine RBC Urine WBC Urine Bacteria Ur Culture Indicated? Micro UA Comment Ultrasound: 16 week gestation. heart rate 153 beats per minute. Renal ultrasound: No hydronephrosis or kidney stones. No evidence of abscess. Assessment & Plan (1) Pyelonephritis affecting in second trimester: Current visit: Yes Status: Acute (2) 14 weeks gestation of : Current visit: Yes Status: Acute Plan: Assessment/Plan Narrative: Assessment: 22-year-old 2 para 1 at 14 weeks gestation with left-sided pyelonephritis No evidence of abscess or kidney stones Plan: Continue IV antibiotics until 04/03/2018 Discharge patient to home on Macrobid 1 p.o. b.i.d. for 8 more days Macrodantin 50 mg p.o. q.day for the remainder of the Patient to follow up with her primary OB provider as scheduled
--- NOTE | 2018-04-02 12:38 | PM.PN.1 ---
Subjective Date Patient Seen: 04/02/18 Time Patient Seen: 09:39 Interval history: A 22-YEAR-OLD ADMITTED YESTERDAY AFTER ABDOMINAL DISCOMFORT LEFT FLANK PAIN NAUSEA VOMITING FOR 2 DAYS FOUND TO HAVE URINARY TRACT INFECTION CULTURES PENDING ULTRASOUND OF THE KIDNEYS WERE NEGATIVE FOR ANY PYELONEPHRITIS OR ABSCESS OF STONES OBSTETRICS CONSULTATION AND FINDINGS AND PLAN DISCUSSED WITH DR. JACKSON PATIENT IS FEELING BETTER TODAY BUT STILL SOME ABDOMINAL DISCOMFORT ON ALL Exam Vital Signs (past 8 hours): - 04/02/18 07:00 04/02/18 07:45 04/02/18 11:55 Temperature 97.6 F 98.0 F Pulse Rate 84 85 Respiratory Rate 16 16 Blood Pressure 94/55 L 99/62 Pulse Oximetry 96 100 99 Oxygen Delivery Method Room Air Oxygen Flow Rate 0 Const General: cooperative, healthy appearing, comfortable and well developed Orientation: alert, awake and oriented x3 HENMT Head: normal to inspection Ears: hearing grossly normal bilaterally Nose: external nose normal Face and sinus: normal facial exam Eyes General: appearance normal, both eyes and all related structures Eyelids: eyelids normal Conjunctivae: conjunctivae normal Sclera: sclerae normal Neck Neck: normal visual inspection Thyroid: thyroid normal Resp Effort & Inspection: normal respiratory effort, able to speak in complete sentences, respiratory effort not decreased and no respiratory distress Auscultation: clear to auscultation bilaterally Cardio Rate: regular rate Rhythm: regular rhythm Heart Sounds: S1 normal and S2 normal GI Inspection: normal to inspection Palpation: soft and no hepatosplenomegaly Other: VAGUE TENDERNESS RT LQ AND LT UQ Skin General: no rashes or lesions noted Neuro General: alert, awake and oriented x3 Cranial Nerves: CN's II-XI intact bilaterally Cognition: normal cognition Speech: speech normal Motor: muscle tone normal throughout Extrem General: normal to inspection Psych Mood: congruent mood Affect: normal affect Attitude: cooperative Thought Process: normal Thought Content: normal Judgment: judgment good Objective Labs Result Diagrams: 04/01/18 16:40 04/01/18 16:40 Labs: Laboratory Results - last 24 hr 04/01/18 04/01/18 04/01/18 16:00 16:40 16:40 WBC 14.3 H RBC 4.01 Hgb 12.5 Hct 36.3 MCV 90.6 MCH 31.3 MCHC 34.5 RDW 12.4 Plt Count 161 Neut % (Auto) 84.6 H Lymph % (Auto) 8.1 L [place] % (Auto) 7.1 Eos % (Auto) 0.1 L Baso % (Auto) 0.1 Neut # (Auto) 85526 H Sodium 134 L Potassium 3.8 Chloride 97 L Carbon Dioxide 25 BUN 5 L Creatinine 0.60 Estimated GFR > 60.0 BUN/Creatinine Ratio 8.3 Glucose 104 H Lactate Calcium 9.4 Urine RBC 1-5/hpf Urine WBC 30-100/hpf H Urine Bacteria Many (>30) H Ur Culture Indicated? Specimen cultured Micro UA Comment Not Reportable 04/01/18 16:40 WBC RBC Hgb Hct MCV MCH MCHC RDW Plt Count Neut % (Auto) Lymph % (Auto) [place] % (Auto) Eos % (Auto) Baso % (Auto) Neut # (Auto) Sodium Potassium Chloride Carbon Dioxide BUN Creatinine Estimated GFR BUN/Creatinine Ratio Glucose Lactate 0.9 Calcium Urine RBC Urine WBC Urine Bacteria Ur Culture Indicated? Micro UA Comment Assessment & Plan Plan: Assessment/Plan Narrative: 1. ACUTE PYELONEPHRITIS NO EVIDENCE OF PYONEPHROSIS STONES ON ULTRASOUND OF THE KIDNEY IN A PATIENT WITH 21 WEEKS HE IS ON IV ROCEPHIN NOW AND CONTINUE THAT AND WILL BE DISCHARGED HOME ON ORAL NITROFURANTOIN WITH SUPPRESSIVE THERAPY FOR THE REST OF THE 2. RECURRENCE UTI Time Spent With Patient Time with patient: 25 - 35 minutes
--- NOTE | 2018-04-02 13:11 | PC.NURSE ---
AM shift pt c/o nausea and LUQ/ Left flank pain (6/10) throughout shift. Administered 650mg Tylenol and pain decreased to around a 2/10. Patient vomited once (400ml), and reports feeling warm. Urine cultures came back positive for Gram Negative Bacilli. US of kidneys completed this AM. D5NS running at 84/hr with 20mEq of K. Patient is 16wk and denies n/v pre-UTI. Denies pain with voiding.
--- NOTE | 2018-04-02 14:15 | CM.DANOTE ---
Discharge Planning/Care Management DCP: assessment: CM Discharge Assessment Start: 04/02/18 14:12 Freq: Status: Active Protocol: Document 04/02/18 14:12 ITV (Rec: 04/02/18 14:15 [email or web address] [email or web address]) Discharge Planning Assessment Advance Directives? No Advance Directives on File No History Provided By Medical Record Prior Living Arrangements Apartment/Condo Household Members significant other family children Independent with ADL's Yes Is patient alert and oriented? Yes Barriers to Discharge No Discharge Plan Home Referrals Initiated None needed Additional Comment gets primary OB care in [place]. Whiteboard Updated in Patient Room with Yes name and ext. # of [place] Comment pt and her boyfriend Leigh Ann both appearing to be sleeping deeply and do not rouse while white board is updated. ([id number] ) Review Status In Process Next Review Type Continued Stay Review
--- NOTE | 2018-04-02 14:25 | CM.DANOTE ---
Discharge Planning/Care Management DCP: assessement: case received, EMR reviewed, conferred with RN caring for pt who confirmed that there had been some confusion re ? of a d/c today and that Dr. Hicks has clarified that pt would stay on for the IV antibiotics with consideration of d/c tomorrow. Attempted to meet now with pt and her sig other now. Neither roused from apparent deep sleep, white board was updated with d/c inventory control planner contact info. Pt is a 22 year old female who admitted to care of hospitalist team for s/s pyelonephritis. She is [address] Hicks was consulted. PCP: listed as Katerina Vaughan Payer: [facility]/Medicaid. Pt, per RN, was hoping to d/c this morning. so she could go to a friend's wedding at noon. She was declared not stable for same. It is anticipated she will be able to go home tomorrow. No concern are identified at this time re the d/c plan. Will check in tomorrow and be following prn for any d/c needs that may arise. CM Discharge Assessment Start: 04/02/18 14:12 Freq: Status: Active Protocol: Document 04/02/18 14:12 ITV (Rec: 04/02/18 14:15 [email or web address] [email or web address]) Discharge Planning Assessment Advance Directives? No Advance Directives on File No History Provided By Medical Record Prior Living Arrangements Apartment/Condo Household Members significant other family children Independent with ADL's Yes Is patient alert and oriented? Yes Barriers to Discharge No Discharge Plan Home Referrals Initiated None needed Additional Comment gets primary OB care in [place]. Whiteboard Updated in Patient Room with Yes name and ext. # of Industrial Pharmacist Comment pt and her boyfriend Leigh Ann both appearing to be sleeping deeply and do not rouse while white board is updated. ([id number] ) Review Status In Process Next Review Type Continued Stay Review
[2018-04-02] MEDS: CEFTRIAXONE 1 GM/50 ML FROZ.PIGGY IV (16:37)
[2018-04-02] MEDS: ONDANSETRON 4 MG/2 ML INJ IV (20:34)
--- NOTE | 2018-04-03 05:57 | PC.NURSE ---
Mechanic- Uneventful over night, VSS, afebrile. Pain reported as same 6/10 to RLQ and LUQ abd and lower back. Tylenol prn request at 2300 from evening RN, pt able to make needs known. Voiding qs, aware of need for I/O's. IVF infusing well to Right AC PIV per order. Mild nausea noted, no prn's needed throughout shift. Call light within reach.
[2018-04-03 06:02] VITALS: BP 101/58; PULSE 78; RESP 17; TEMP 37.3; O2SAT 99
[2018-04-03 07:00] VITALS: O2SAT 98
[2018-04-03] MEDS: DEXTROSE 5%-NS W/KCL 20MEQ 1,000 ML 84 MEQ IV (07:38)
[2018-04-03] MEDS: ACETAMINOPHEN 325 MG TABLET 650 MG PO ×2 (07:48→12:41)
[2018-04-03] MEDS: ONDANSETRON 4 MG/2 ML INJ IV ×2 (07:53→12:45)
--- NOTE | 2018-04-03 07:58 | PC.NURSE ---
Addendum entered by Cherise De La Cruz R.N. 04/03/18 12:49: Noon- D/c on hold for nausea/emesis this AM Original Note: Addendum entered by Cherise De La Cruz R.N. 04/03/18 10:44: Add 1020-Pt had x1 emesis 300mls. Reports nausea resolved since emesis. Requesting shower. ABD pain vauge and diffuse across ABD. BT+, soft and non tender. Discussed with Dr Nunez, if this was overall nausea and poor nutritional choices. Education provided on nutritional service and support. Original Note: AM shift Pt A/o x3, wakes reporting worsening pain to ABD, APAP given, 03/18. Mild nausea, medicated with zofran. Pt is up sipping tea before meal and would like to see if mobilization and BR aids in pain relief. VSS, afebrile. IVF infusing.
[2018-04-03 08:00] VITALS: BP 93/58; PULSE 77; RESP 17; TEMP 37.1; O2SAT 99
[2018-04-03 12:11] VITALS: BP 94/55; PULSE 72; RESP 16; TEMP 36.8; O2SAT 98
--- NOTE | 2018-04-03 12:49 | CM.DPC ---
DCP Discharge Home Per MD, pt is medically stable to d/c home today on oral medication and no identified barriers to discharge. Per RN, pt improved and independent in room and still wanting to d/c home today. Plan: Patient to d/c home via family POV today and no d/c needs at this time. BRYON Valladares
--- NOTE | 2018-04-03 14:32 | P.DS_ITS ---
History of Present Illness Chief complaint: ABD PAIN Narrative: THIS VERY PLEASANT 22-YEAR-OLD FEMALE WHO IS 16 WEEKS NAUSEA VOMITING FOR THE LAST 2 DAYS ABDOMINAL DISCOMFORT WENT TO [facility] EMERGENCY ROOM 2 DAYS AGO AND HAD TO WAIT FOR 3 HR BUT NOBODY SAW DRFrandy SO SHE CAME BACK AND SHE PRESENT TO THE ER TODAY SINCE SHE WAS CONTINUOUSLY VOMITING LAST NIGHT SHE HAS A FEVER IN THE ER INITIALLY SHE THOUGHT THE ABDOMINAL DISCOMFORT IS UNCERTAIN BOTHER BUT THEN SHE STARTED GETTING NAUSEA AND VOMITING AND THE SHE PRESENTED TO THE ER DURING THE BEGINNING OF THE SHE HAD A POSITIVE URINARY TRACT INFECTION BUT DID NOT TAKE ANY ANTIBIOTICS PRESCRIBED AT THE TIME THIS IS A 2ND THE 1ST THE CHILD IS ON SMEAR IN 3 MONTHS OR SHE HAD NO ISSUES DURING THAT TIME NO URINARY INFECTION OR DIABETES Discharge Providers Date of admission: 04/01/18 16:53 Primary care physician: Katerina Vaughan Consults: 04/01/18 19:03 Consult to Obstetrics Routine Comment: Consulting Provider: Scarlet Hicks Reason for consultation: 16 WEEK AC PYELONEPHRITIS Has provider been notified: Yes Discharge provider: Moises Jamil MD Summary Discharge Diagnosis: 1 RECURRENT URINARY TRACT INFECTION WITH E COLI 2. ACUTE PYELONEPHRITIS WITH NO EVIDENCE OF STONE OR ABSCESS 3. 14 WEEKS Hospital Course: THIS IS A 22-YEAR-OLD WITH 14 WEEKS CAME TO THE ER BECAUSE OF ABDOMINAL PAIN LEFT FLANK PAIN NAUSEA VOMITING SHE WAS DIAGNOSED WITH URINARY INFECTION AT THE BEGINNING OF THIS BUT DID NOT TAKE ANY MED TREATMENT URINALYSIS IN THE ER SHOWED ABNORMALITIES URINE CULTURE SUBSEQUENTLY GREW E COLI [place]O SENSITIVE TO ANTIBIOTICS DR. HICKS KINDLY CONSULTED FROM THE OBSTETRIC STANDPOINT PATIENT HAS REMAINED AFEBRILE HAS NOT HAD ANY ACUTE EVENT IN THE HOSPITAL SHE IS BEING DISCHARGED HOME ON [place] FOR ANOTHER 7 DAYS IN TREATMENT DOSE OF 100 MG TWICE A DAY AND AFTER THAT SHE WILL NEED TO BE ON [facility] AT 50 MG ONCE A DAY FOR THE REST OF THE PER THE RECOMMENDATION OF HER MANAGER CODE HERE DR. HICKS THE PATIENT NORMALLY FOLLOWS UP AT [facility] AND SHE WILL FOLLOW UP WITH HER FAMILY PHYSICIAN STEVEN MARQUES IN THE NEXT WEEK OR SO Status at Discharge Functional status at discharge: independent ambulation Overall status at discharge: patient is back to baseline Time Spent with Patient Greater than 30 minutes Exam Vital Signs (past 8 hours): - 04/03/18 07:00 04/03/18 08:00 04/03/18 12:11 Temperature 98.8 F 98.2 F Pulse Rate 77 72 Respiratory Rate 17 16 Blood Pressure 93/58 L 94/55 L Pulse Oximetry 98 99 98 Oxygen Delivery Method Room Air Oxygen Flow Rate 0 Const General: cooperative, healthy appearing and comfortable Orientation: alert, awake and oriented x3 HENMT Head: normal to inspection Ears: hearing grossly normal bilaterally Nose: external nose normal Face and sinus: normal facial exam Mouth: oral mucosae normal Eyes Conjunctivae: conjunctivae normal Sclera: sclerae normal Cornea: corneas normal EOM: EOM intact bilaterally Neck Neck: normal visual inspection, full ROM and No JVD Thyroid: thyroid normal Resp Effort & Inspection: normal respiratory effort, able to speak in complete sentences, no respiratory distress and no use of accessory muscles Auscultation: clear to auscultation bilaterally GI Inspection: normal to inspection Palpation: soft and no hepatosplenomegaly Skin General: no rashes or lesions noted Neuro General: alert, awake, oriented x3 and no meningeal signs Cranial Nerves: CN's II-XI intact bilaterally Cognition: normal cognition Speech: speech normal Motor: muscle tone normal throughout Extrem Other: NIL EDEMA Psych Appearance: grossly normal Mental Status: mental status grossly normal Mood: congruent mood Affect: normal affect Attitude: cooperative Thought Process: normal Thought Content: normal Judgment: judgment good Objective Labs Result Diagrams: 04/01/18 16:40 04/01/18 16:40 Discharge Plan Discharge Plan Patient Disposition: Home Provider Discharge Instructions Diet: Regular Activity: ad alona Discharge Data Primary Care Provider: Katerina Vaughan Attending Provider: Bert Jamil Admit Date/Time: 04/01/18 16:53
[2018-04-03 15:44] VITALS: BP 99/61; PULSE 91; RESP 16; TEMP 36.7; O2SAT 97
--- NOTE | 2018-04-03 16:33 | PC.NURSE ---
patient left facility a&ox4, escorted by staff in w/c with all belongings and with significant other to drive patient home. written prescriptions were accidentally left here but morning RN called patient and left message to have scripts faxed for them.
== END 2018-04-03 15:45 | disposition home or self-care (01) | DRG 566 ==
LOC: ED 16:47 → AC 04-02 08:12
PROVIDERS: Admitting Provider Internal Medicine; Emergency Provider Emergency Medicine; PCP Nurse Practitioner; Visit Provider Internal Medicine
DX: O23.02 Infections of kidney in pregnancy, second trimester (principal); B96.20 Unspecified Escherichia coli [E. coli] as the cause of diseases classified elsewhere; Z3A.16 16 weeks gestation of pregnancy; N12 Tubulo-interstitial nephritis, not specified as acute or chronic
CPT/HCPCS: 36591; 76770; 76815; 80048; 81003; 81015; 83605; 85025; 87040; 87077; 87086; 87186; 96365; 99282; 99284; J2405